=== PATIENT | female | born 1990 | race Caucasian/White ===

== ENCOUNTER 2017-06-22 11:55 | Emergency (ER) | payer OTHER ==
[2017-06-22 12:22] VITALS: BP 96/46
--- NOTE | 2017-06-22 12:42 | UC ---
General HPI - HPI Summary HPI Summary: 27 yo female presents to [facility], accompanied by gentleman (father), c/o feeling bad x 4 days. Symptoms started with cough / uri / runny nose. Unk fever. Improved yesterday, and was able to go out with friend, but this am awoke feeling very bad, weak, tired. + cough, + nausea. + sore throat. Denies urinary sx perse, but difficult to tell since sick. Denies diarrhea. Sign hx - admitted to [facility] with similar sx in February d/t sepsis (origen?) . Hurts to breath, feels tired. 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 Hx Last Menstrual Period: 02/21/17; IUD Pain Intensity: 18 - Allergy/Home Medications Allergies/Adverse Reactions: Allergies Allergy/AdvReac Type Severity Reaction Status Date / Time Penicillins Allergy Rash Verified 06/22/17 12:22 Home Medications: Home Medications Ibuprofen 400 mg PO 06/22/17 [History] PMH/Surg Hx/FS Hx/Imm Hx - Additional Past Medical History Additional PMH: see hpi Previously Healthy: No - see hpi - Surgical History Surgical History: None - Family History Known Family History: Positive: Unknown - Social History Alcohol Use: None Substance Use Type: Marijuana Substance Use Comment - Amount & Last Used: 03/01/17 Smoking Status (MU): Never Smoked Tobacco Have You Smoked in the Last Year: Yes Review of Systems Constitutional: Fever, Fatigue Skin: Negative Eyes: Negative ENT: Sore Throat, Nasal Discharge Respiratory: Cough Cardiovascular: Palpitations Gastrointestinal: Nausea Genitourinary: Negative Motor: Weakness Neurovascular: Negative Musculoskeletal: Arthralgia, Myalgia Neurological: Headache Psychological: Anxious Is Patient Immunocompromised?: No - none known All Other Systems Reviewed And Are Negative: Yes Physical Exam Triage Information Reviewed: Yes Appearance: Ill-Appearing, Thin Vital Signs: Initial Vital Signs Temp 101.1 F 06/22/17 12:18 Pulse 124 06/22/17 12:18 Resp 20 06/22/17 12:18 BP 96/46 06/22/17 12:18 Pulse Ox 100 03/02/18 12:18 Vital Signs Reviewed: Yes Eye Exam: Normal - grossly normal. perrla eomi ENT: Positive: Pharyngeal erythema - post phary redness, no sores / exudates. L tonsil > R, Nasal congestion Neck exam: Normal - no [place] meningismal signs. But weak. Neck: Positive: Supple, Nontender Respiratory Exam: Other - poor insp effort. As auscultatable, no [place] wheeze, BS equal. Cardiovascular Exam: Other - HR 120's Distal (finger) cap refill good. However , a little diaphoretic. Cardiovascular: Positive: Pulses Normal - correlates with left radial pulse Abdomen Description: Positive: Nontender - + bs, soft. cvat - equivacal Musculoskeletal Exam: Other - moves x 4 ext's. gait not tested Musculoskeletal: Positive: Other: - moves x 4 ext's. gait not tested Neurological Exam: Normal - grossly nonfocal, detailed not done Psychological Exam: Other - conversing easily and appropriately in full sentances. However, tired, tearful. Psychological: Positive: Other: - conversing easily and appropriately in full sentances. However, tired, tearful. Skin Exam: Other - no visible or reported rash. Slightly diaphoretic. Pale. Skin: Positive: Other - no visible or reported rash. Slightly diaphoretic. Pale. Course/Dx - Course Course Of Treatment: Pt looks tired, pale, conversing appropriately. I told the RN to place an IV, with the intent to notify EMS for transport to ED. However, she does not want to go to ED via EMS, father reports that he will drive her to ED. I encouraged EMS, especially with current VS and hx sepsis, but they politely but adamantly decline. AMA for EMS signed by pt. I also spoke with pt with father not in the room, she does not have new questions or concerns. Offered and encouraged antipyretic, but she declines, citing that she does not want to throw up. She did agree to zodorothea odt. I reviewed recommendation for IV fluids, abx, antipyretic, etc. Unfortunately without she declines EMS. Pt is in agreement that she will go to the ED, she and father report [place] [facility]. I called ED, spoke with Radha Conklin NP. Addendum 13:50 called ED to ensure that pt arrived, indeed she is there and is being treated. - Differential Dx - Multi-Symptom Provider Diagnoses: Febrile illness. Volume depletion. Cough. Possible sepsis Discharge - Discharge Plan Condition: Stable Disposition: OTHER Discharge Disposition Comment: to [place] ED, pov Patient Education Materials: Fever in Adults (ED) Referrals: Lupis Vernon MD [Primary Care Provider] - Additional Instructions: I recommend that you go directly to the Emergency Department by ambulance. If you drive, please go directly to the Emergency Department. Do not stop on the way. Call [address] for any issues.
[2017-06-22] MEDS ORDERED: Ondansetron ODT TAB* 4 MG ONE (12:48)
[2017-06-22] MEDS: Ondansetron TAB* 4 MG PO ONE (12:50)
== END 2017-06-22 12:57 ==
LOC: UCCORT 11:55
DX: R50.9 Fever, unspecified (principal); E86.9 Volume depletion, unspecified
CPT/HCPCS: 99212; A9270-GY; G0463

== ENCOUNTER 2018-04-04 15:26 | Emergency (ER) | payer SELFPAY ==
[2018-04-04 15:46] VITALS: BP 112/73
--- NOTE | 2018-04-04 16:11 | ED ---
Skin Complaint - HPI Summary HPI Summary: 28 yr old female with itchy rash to the anterior neck. Onset two weeks ago, and she said it got better a little but now has appeared on the left side of neck and is present bilaterally. The patient denies drooling, tongue swelling, stridor, rash elsewhere on the body. She has no other complaints. . She did use hydrocortisone cream on it and it seemed to get better but seems to have spread. She has a friend that had ring worm. - History of Current Complaint Chief Complaint: UCSkin Time Seen by Provider: 04/04/18 15:51 Stated Complaint: SKIN COMPLAINT Hx Last Menstrual Period: 03/23/18 Pain Intensity: 0 - Allergy/Home Medications Allergies/Adverse Reactions: Allergies Allergy/AdvReac Type Severity Reaction Status Date / Time Penicillins Allergy Rash Verified 04/04/18 15:41 Home Medications: Home Medications NK [No Home Medications Reported] 04/04/18 [History Confirmed 04/04/18] PMH/Surg Hx/FS Hx/Imm Hx Infectious Disease History: No Infectious Disease History: Denies: Traveled Outside the [place] in Last 30 Days - Family History Known Family History: Positive: Unknown - Social History Occupation: Employed Full-time Alcohol Use: Rare Substance Use Type: Reports: Marijuana Substance Use Comment - Amount & Last Used: 04/03/18 Smoking Status (MU): Light Every Day Tobacco Smoker Amount Used/How Often: <10 cigs/day Have You Smoked in the Last Year: Yes Review of Systems Constitutional: Negative Positive: Rash - anterior neck All Other Systems Reviewed And Are Negative: Yes Physical Exam Triage Information Reviewed: Yes Vital Signs On Initial Exam: Initial Vitals Temp Pulse Resp BP Pulse Ox 99.4 F 84 16 112/73 100 04/04/18 15:42 04/04/18 15:42 04/04/18 15:42 04/04/18 15:42 04/04/18 15:42 Vital Signs Reviewed: Yes Appearance: Positive: Well-Appearing, No Pain Distress Skin: Positive: Other - On anterior neck there is a rash with raised border that is faint with lichenified skin. The border is hyperpigmented. rash covers area about 3 inches by 1.5 inch in diameter. Eyes: Positive: EOMI Neck: Positive: Nontender, Other: - Thyroid not enlarged on exam. Respiratory/Lung Sounds: Positive: Clear to Auscultation Abdomen Description: Negative: Distended Musculoskeletal: Positive: Strength/ROM Intact Neurological: Positive: CN Intact II-III, Speech Normal Psychiatric: Positive: Normal Diagnostics - Vital Signs Vital Signs Temp Pulse Resp BP Pulse Ox 04/04/18 15:42 99.4 F 84 16 112/73 100 - Laboratory Lab Statement: Any lab studies that have been ordered have been reviewed, and results considered in the medical decision making process. Course/Dx - Course Course Of Treatment: 28 yr old with tinea corporis that is localized. - Diagnoses Provider Diagnoses: Tinea corporis Discharge - Sign-Out/Discharge Documenting (check all that apply): Patient Departure All imaging exams completed and their final reports reviewed: No Studies - Discharge Plan Condition: Good Disposition: HOME Patient Education Materials: Tinea Corporis (ED) Referrals: Lupis Vernon MD [Primary Care Provider] - 5 Days Additional Instructions: Apply miconazole cream twice a day to the rash area on the neck. Apply hydrocortisone ointment twice a day to the area. Be sure to see your primary doctor in the next week for reevaluation. - Billing Disposition and Condition Condition: GOOD Disposition: Home
== END 2018-04-04 16:27 | disposition home or self-care (01) ==
LOC: UCCORT 15:26
DX: B35.4 Tinea corporis (principal); Z88.0 Allergy status to penicillin; F17.210 Nicotine dependence, cigarettes, uncomplicated
CPT/HCPCS: 99211; G0463